=== PATIENT | male | born 1975 | race Caucasian/White ===

== ENCOUNTER 2020-12-28 09:20 | Emergency (ER) | payer OTHER, MEDICAID ==
[~2020-12-28] VITALS: Ht 167.6 cm; Wt 80.7 kg
[~2020-12-28 09:20] MED LIST: AMITRIPTYLINE H50 MG PO; BRIMONIDINE TART5 ML OP; ENALAPRIL MALEA20 MG PO; FUROSEMIDE40 MG PO; HUMALOG100 U/ML SC; LEVEMIR FLEX100 U/M1 SC; LEVEMIR100 U/M1 SC; LORAZEPAM1 MG PO; NOVI SQ; TRAMADOL HCL50 MG PO; VIAGRA100 MG PO
[2020-12-28] MEDS ORDERED: CILOS OU (12:01)
[2020-12-28 12:15] VITALS: BP 155/74
== END 2020-12-28 12:15 | disposition home or self-care (01) ==
LOC: ED 09:20
DX: H10.9 Unspecified conjunctivitis (principal); E11.319 Type 2 diabetes mellitus with unspecified diabetic retinopathy without macular edema; H53.9 Unspecified visual disturbance; I10 Essential (primary) hypertension; Z86.73 Personal history of transient ischemic attack (TIA), and cerebral infarction without residual deficits
CPT/HCPCS: 76512